=== PATIENT | female | born 1995 | race Caucasian/White ===

== ENCOUNTER 2019-09-19 22:19 | Outpatient (RCR) | payer OTHER, BC, SELFPAY ==
[2019-09-19 23:03] VITALS: BP 105/66; PULSE 85
== END 2019-11-30 07:46 | disposition home or self-care (01) ==
LOC: ANHOBOP 22:19
PROVIDERS: Visit Provider Obstetrics & Gynecology
DX: O36.8130 Decreased fetal movements, third trimester, not applicable or unspecified (principal); Z3A.39 39 weeks gestation of pregnancy
CPT/HCPCS: 59025

== ENCOUNTER 2021-06-06 09:33 | Outpatient (CLI) | payer OTHER, SELFPAY ==
[2021-06-06 10:29] LABS: Basophils Absolute Auto 0.1 K/mm3 (0.0-0.1); Basophils Percent Auto 1.1 % (0.2-1.2); Eosinophils Percent Auto 0.4 % (0-4.4); Hematocrit 34.4 % (37.0-47.0); Immature Granulocyte Absolute 0.04 K/mm3 (0.00-0.031); Immature Granulocyte Percent A 0.4 % (0-0.5); Lymphocytes Absolute Auto 5.66 K/mm3 (0.9-3.2); Lymphocytes Percent Auto 57.3 % (18.3-44.2); Mean Corpuscular HGB Conc 34.9 g/dl (32-36); Mean Corpuscular Hemoglobin 29.9 pg (26-34); Mean Corpuscular Volume 85.8 fl (80-100); Mean Platelet Volume 9.4 fl (7.4-10.4); Monocytes Absolute Auto 0.5 K/mm3 (0.1-0.6); Monocytes Percent Auto 5.3 % (2.6-8.5); Neutrophils Absolute Auto 3.5 K/mm3 (1.3-6.7); Neutrophils Percent Auto 35.5 % (45.5-73.1); Platelet Count Result 211 k/mm3 (150-375); Red Blood Count 4.01 M/mm3 (4.2-5.4); Red Cell Distribution Width 12.5 % (11.5-14.5); White Blood Count 9.9 K/mm3 (4.5-10.0)
[2021-06-06 10:55] LABS: Influenza Control Positive
[2021-06-06 11:06] LABS: Monoscreen Negative (Negative); Negative Monotest Control Negative (Negative); Positive Monotest Control Positive (Positive)
[2021-06-06 11:36] LABS: Atypical Lymphocytes Present; Platelet Estimate Adequate (Adequate)
== END 2021-06-06 09:34 | disposition home or self-care (01) ==
PROVIDERS: Visit Provider Obstetrics & Gynecology
DX: R50.9 Fever, unspecified (principal)
CPT/HCPCS: 85025; 86308; 87804

== ENCOUNTER 2021-08-31 16:42 | Observation (INO) | payer OTHER, SELFPAY ==
--- NOTE | ~2021-08-31 | US_ITS ---
EXAMINATION: US OB limited EXAM DATE: 08/31/2021 18:12 INDICATION: Cervical length, MURTAZA, and check placenta. 2nd trimester. TECHNIQUE: Pelvic obstetrical transabdominal sonogram was performed by a technologist. There are mu ltiple grayscale and Doppler images available for interpretation. There are no earlier studies of th is gestation for comparison. FINDINGS: There is a single fetus identified in vertex presentation with a heart rate of 145 beats pe r minute. The placenta is located in the anterior position. There is no sonographic evidence of retr oplacental hemorrhage identified. The amniotic fluid index is 13.6 centimeters, which is normal. Plac ental margin to internal cervical os distance is 5.8 cm. Cervical canal length measured several time s 3.2-3.8 cm. The lower measurement appears to be an underestimation by a few millimeters, No cervica l funneling. IMPRESSION: 1. Single fetus in vertex presentation with heart rate 145 beats per minute. 2. Cervical canal length about 3.5 cm, no funneling. 3. Normal MURTAZA 13.6 cm. Reviewed, dictated and finalized at location A. [facility] [employer]
[2021-08-31 17:00] VITALS: TEMP 37.2
[2021-08-31 17:01] VITALS: BP 124/79; PULSE 95
[2021-08-31 17:06] VITALS: TEMP 37.2; BMI 25.4
--- NOTE | 2021-08-31 17:08 | OBADM ---
This patient, Vivian Shay, admitted to the OB room 115 at 1642 for observation for vaginal bleeding. Patient/family oriented to hospital policies and general routines including ID bracelet, bed and alarms, visiting hours, pain management, procedures, bathroom and other care routines, personal items, smoking policy, room service/diet, and visiting hours. Patient/Family are encouraged to report perceived risks to care and to ask questions if they do not understand what they are told or what they should do.
--- NOTE | 2021-08-31 18:45 | PC.NURSE ---
called Dr. Lyons- reviewed US report. no further bleeding noted. orders received to d/c home on pelvic rest, no heavy lifting, office visit early next week.
--- NOTE | 2021-09-01 07:50 | PM.OBTRLD ---
OB - Triage/Final Diagnosis Visit Information Comments/Additional reasons for admission: I have assessed the risk for this patient, Vivian Shay, and determined that she would benefit from observation care. Evaluation Vital signs: Vital Signs - 24 hr 08/31/21 17:00 08/31/21 17:01 08/31/21 17:06 Temperature 37.2 C 37.2 C Pulse Rate 95 Blood Pressure 124/79 Final Diagnosis (1) Vaginal bleeding affecting early : Code(s): O20.9 - Hemorrhage in early , unspecified Status: Acute
== END 2021-08-31 19:07 | disposition home or self-care (01) ==
PROVIDERS: Admitting Provider Obstetrics & Gynecology; Visit Provider Obstetrics & Gynecology
DX: O20.9 Hemorrhage in early pregnancy, unspecified (principal); Z3A.22 22 weeks gestation of pregnancy
CPT/HCPCS: 76815; G0378; G0379

== ENCOUNTER 2021-11-10 12:12 | Outpatient (RCR) | payer OTHER, SELFPAY ==
--- NOTE | ~2021-11-10 | US_ITS ---
EXAMINATION: US OB follow up w BPP EXAM DATE: 11/10/2021 14:03 INDICATION: hx of covid two weeks ago, growth and BPP, ?SGA Hx Of COVID 3rd trimester. TECHNIQUE: Pelvic obstetrical transabdominal sonogram was performed by a technologist. There are mu ltiple grayscale and Doppler images available for interpretation. Comparison is made to prior examina tion from 08/31/2021. FINDINGS: There is a single fetus identified in vertex presentation with a heart rate of 165 beats pe r minute. The placenta is located in the anterior fundal position. There is no sonographic evidence of retroplacental hemorrhage identified. The amniotic fluid index is 12.5 centimeters, which is norm al. BIOMETRIC DATA: Biparietal diameter (BPD): 8.2 cm --------------> 32 weeks 6 days. Head circumference (HC): 29.5 cm ---------------> 32 weeks 4 days. Abdominal circumference (AC): 27.2 cm ---------> 31 weeks 2 days. Femur length (FL): 6.2 cm ------------------------> 32 weeks 1 day. These measurements are concordant. HC/AC ratio is 1.08 (The 5th -- 95th percentile range is 0.96-1.13. Estimated weight is 1837 g +/- 276 g. This is the 12th percentile when the currently reported clinical gestation age 33 weeks 0 days, clinical estimated date of delivery (JALYN-OPE) 12/29 is used. F etal estimated gestational age based on measurements from this exam is 32 weeks 2 days, with an estim ated date of delivery (JALYN-AUA) 01/03. BIOPHYSICAL PROFILE (performed by the technologist) breathing (30 sec sustained breathing in 30 minutes): 2 out of 2 movement (3 gross body movements in 30 minutes): 2 out of 2 tone (one episode of nzzvbet-uxfmfdmiu-qrqnivd limb movement): 2 out of 2 Amniotic fluid pocket (2 cm): 2 out of 2 Total score: 8 out of 8 IMPRESSION: 1. Single fetus with heart rate of 165 bpm. 2. Normal biophysical profile score of 8 out of 8. 3. Estimated weight of 1837 grams, 276 percentile using the currently reported clinical gestat ion age of 33 weeks 0 days, JALYN(OPE) 12/29. 4. Normal MURTAZA 12.5 cm. Reviewed, dictated and finalized at location B. LOADER IMPRESSION: 1. Single fetus with heart rate of 165 bpm. 2. Normal biophysical profile score of 8 out of 8. 3. Estimated weight of 1837 grams, 276 percentile using the currently re ported clinical gestation age of 33 weeks 0 days, JLAYN(OPE) 12/29. 4. Normal MURTAZA 12.5 cm.
[2021-11-10 13:27] VITALS: BP 103/63; PULSE 106
--- NOTE | 2021-11-10 14:16 | PC.NURSE ---
US results called to Dr Lyons, No further orders.
== END 2022-02-08 23:59 | disposition home or self-care (01) ==
LOC: ANHOBOP 12:12
PROVIDERS: Visit Provider Obstetrics & Gynecology
DX: O36.5930 Maternal care for other known or suspected poor fetal growth, third trimester, not applicable or unspecified (principal); Z3A.33 33 weeks gestation of pregnancy
CPT/HCPCS: 59025; 76816; 76819

== ENCOUNTER 2021-12-18 11:53 | Outpatient (CLI) | payer OTHER, SELFPAY ==
[2021-12-18 12:12] LABS: Basophils Percent Auto 0.2 % (0.2-1.2); Eosinophils Absolute Auto 0.1 K/mm3 (0-0.3); Eosinophils Percent Auto 0.7 % (0-4.4); Hematocrit 37.6 % (37.0-47.0); Immature Granulocyte Absolute 0.06 K/mm3 (0.00-0.031); Immature Granulocyte Percent A 0.7 % (0-0.5); Lymphocytes Percent Auto 24.6 % (18.3-44.2); Mean Corpuscular HGB Conc 34.6 g/dl (32-36); Mean Corpuscular Volume 89.7 fl (80-100); Mean Platelet Volume 9.8 fl (7.4-10.4); Monocytes Absolute Auto 0.5 K/mm3 (0.1-0.6); Monocytes Percent Auto 5.8 % (2.6-8.5); Neutrophils Absolute Auto 6.1 K/mm3 (1.3-6.7); Platelet Count Result 226 k/mm3 (150-375); Red Blood Count 4.19 M/mm3 (4.2-5.4); Red Cell Distribution Width 13.1 % (11.5-14.5)
[2021-12-19 09:21] LABS: Rapid Plasma Reagin Non-Reactive (NonReactive)
== END 2021-12-18 11:54 | disposition home or self-care (01) ==
PROVIDERS: Visit Provider Obstetrics & Gynecology
DX: Z01.818 Encounter for other preprocedural examination (principal)
CPT/HCPCS: 36415; 85025; 86592; 86900; 86901

== ENCOUNTER 2021-12-19 05:24 | Inpatient (IN) | payer OTHER, SELFPAY ==
[2021-12-19] VITALS (54 sets, daily range): BP systolic 90–133; BP diastolic 50–83; PULSE 55–106; RESP 12–16; TEMP 36.2–36.7; O2SAT 98–100; BMI 27.1
--- OUTSIDE RECORDS SUMMARY | 2021-12-19 05:31 | XMS_ITS ---
:1995 Author Care Team Providers Name Role Phone [facility] Primary Care Provider Unavailable Allergies Code Code System Name Reaction Severity Status Onset NKDA ? Medications Name Status Start Date Stop Date ? ? amoxicillin 875 mg tablet Completed ? 2020 TAKE 1 TABLET BY MOUTH EVERY 12 HOURS FOR 10 DAYS Flucelvax Quad 0325-3328 (PF) 60 mcg (15 mcg x 4)/0.5 mL IM syri nge Completed ? 08/08/2021 TO BE ADMINISTERED BY PHARMACIST FOR IMMUNIZATION Fluzone Quad 2482-4705 (PF) 60 mcg (15 mcg x 4)/0.5 mL IM syring e Completed ? 08/08/2021 TO BE ADMINISTERED BY PHARMACIST FOR IMMUNIZATION magnesium oxide 400 mg (241.3 mg magnesium) tablet Completed ? 09/05/2021 Take 1 tablet every day by oral route. metoclopramide 10 mg tablet Active ? Not available Nexplanon 68 mg subdermal implant Completed 11/04/2019 01/19/2021 Inject 1 implant by subcutaneous route. ondansetron 4 mg disintegrating tablet Completed ? 08/08/[address]21 PLACE 1 TABLET EVERY 6 8 HOURS BY TRANSLINGUAL ROUTE NEEDED. Pepcid 20 mg tablet Active ? Not availabl e Take 1 tablet twice a day by oral route. Pepcid AC 10 mg tablet Completed ? Take 1 tablet twice a day by oral route as needed. 28 mg iron-800 mcg tablet Completed 04/13/2019 12/15/2020 Take 1 tablet every day by oral route. promethazine 25 mg tablet Completed ? 2018 Take 1 tablet every 4-6 hours by oral route. sertraline 100 mg tablet Completed ? 021 TAKE 1 TABLET BY MOUTH EVERY DAY Sleep Aid (doxylamine) 25 mg tablet
--- OUTSIDE RECORDS SUMMARY | 2021-12-19 05:31 | XMS_ITS ---
:1995 Author Care Team Providers Name Role Phone Primary Care Provider Unavailable Allergies Code Code System Name Reaction Severity Status Onset NKDA ? Medications Name Status Start Date Stop Date ? ? Flucelvax Quad 8976-3226 (PF) 60 mcg (15 mcg x 4)/0.5 mL IM syri nge Active ? Not available TO BE ADMINISTERED BY PHARMACIST FOR IMMUNIZATION Fluzone Quad (PF) 60 mcg (15 mcg x 4)/0.5 mL IM syring e Active ? Not available TO BE ADMINISTERED BY PHARMACIST FOR IMMUNIZATION metoclopramide 10 mg tablet Completed ? 03/22 Take 1 tablet 4 times a day by oral route. As needed for nausea and vomiting Nexplanon 68 mg subdermal implant Active ? Not available Inject 1 implant by subcutaneous route. 28 mg iron-800 mcg tablet Completed 04/13/2019 12/15/2020 Take 1 tablet every day by oral route. promethazine 25 mg tablet Completed ? 2018 Take 1 tablet every 4-6 hours by oral route. pyridoxine (vitamin B6) 25 mg tablet Completed ? 04/13/2019 Take 1 tablet 4 times a day by oral route. sertraline 100 mg tablet Active ? Not joni ilable TAKE 1 TABLET BY MOUTH EVERY DAY Unisom (doxylamine) 25 mg tablet Completed 04/13/2019 05/06/2019 Take 12.5 mg 3 times a day by oral route. Zofran 4 mg tablet Completed ? 10/23/2019 Take 2 tablets every 8 hours by oral route. Zoloft 50 mg tablet Completed ? 06/21/2020 Take 1 tablet every day by oral route. Problems
--- OUTSIDE RECORDS SUMMARY | 2021-12-19 05:31 | XMS_ITS | Encounter Summary ---
:1995 Author Reason for Visit return OB visit ob-nm Assessment and Plan 1. Insufficient weight gain of p regnancy ? US, obstetric, 3rd trimest er 2. Nausea ? Reglan 10 mg tablet ? Pepcid 20 mg tablet Discussion Note: None recorded.Patient educational handouts: No information available. Plan of Care Reminders Provider Appointments None ? ? recorded. Lab None ? ? recorded. Referral None ? ? recorded. Procedures None ? ? recorded. Surgeries None ? ? recorded. Imaging US, [facility] Tr[facility] (Imaging) Medications Name Start Date ? ? metoclopramide 10 mg tablet ? Take 1 tablet 3 times a day by oral route. Pepcid 20 mg tablet ? Take 1 tablet twice a day by oral route. Notes: PNV Medications Administered None recorded. Vitals Weight Blood Pressure 149 lbs 114/62 mm[Hg] Results Lab Results None recorded. Allergies Code Code System Name Reaction Severity Onset NKDA ? ? ? Problems Name Status Onset Date
--- OUTSIDE RECORDS SUMMARY | 2021-12-19 05:31 | XMS_ITS | Encounter Summary ---
:1995 Author Reason for Visit return OB visit Assessment and Plan 1. Routine care ? [facility] ? HIV (1+2) Ab screen, serum ? CBC w/ auto diff Discussion Note: None recorded.Patient educational handouts: No information available. Plan of Care Reminders Provider Appointments None ? ? recorded. Lab Glucose [facility] Tolerance Test, 09/26/2021 (Lab) Gestational, 1-Hour ? HIV (1+2) Ab [facility] Screen, Serum 09/26/2021 (Lab) ? CBC W/ Auto [facility] Diff 09/26/2021 (Lab) Referral None ? ? recorded. Procedures None ? ? recorded. Surgeries None ? ? recorded. Imaging None ? ? recorded. Medications Name Start Date ? ? metoclopramide 10 mg tablet ? Take 1 tablet 3 times a day by oral route. Pepcid 20 mg tablet ? Take 1 tablet twice a day by oral route. Notes: PNV Medications Administered None recorded. Vitals Weight Blood Pressure 148 lbs 117/68 mm[Hg] Results
[2021-12-19] MEDS: LACTATED RINGERS 1,000 ML 125 ML IV CONT (06:06)
--- NOTE | 2021-12-19 06:19 | LDADM ---
This patient, Vivian Shay, was admitted to Labor/Delivery/Recovery 120 on 12/19/21 at 05:24. Plans for section, pain management and were discussed with patient. Patient/family oriented to hospital policies and general routines including ID bracelet, bed and alarms, visiting hours, pain management, procedures, bathroom and other care routines, personal items, smoking policy, room service/diet and guest tray routines, security routines, and visiting hours. Patient/Family are encouraged to report perceived risks to care and to ask questions if they do not understand what they are told or what they should do. See OBIX for further documentation.
--- NOTE | 2021-12-19 06:50 | WPDANESEPPF ---
Anes - Initial Pre Proc Eval Procedure: Operation Date: 12/19/21 07:30 Proposed Procedures p Repeat Section - Allison Lyons MD Date/Time: 12/19/21 06:50 Surgeon: Allison Lyons MD Pre Op Diagnosis: C/S Patient Data Age: 26 Gender: F Height: 1.6 m Weight: 69.5 kg Last Vital Signs Temp 36.6 C 12/19/21 06:30 Pulse 82 12/19/21 06:13 BP 108/66 12/19/21 06:13 Allergies Allergy/AdvReac Type Severity Reaction Status Date / Time No Known Allergies Allergy Verified 12/15/21 10:06 Home Medications Medication Instructions Recorded Confirmed Type PNV cmb#95-ferrous fumarate-FA 1 tablet PO DAILY 08/29/19 12/19/21 History [] sertraline 50 mg tablet 50 mg PO DAILY #90 tablet 12/15/21 12/19/21 Rx Patient hx anesthesia problems: post op nausea/vomiting Family hx anesthesia problems: none Results Review: All pre-operative results and documents have been reviewed as part of the pre-operative evaluation. [facility], [facility] Past Medical History Medical History Post depression (~09/2020) Surgical History Surgical History Delivery by section (~09/23/20) failure to arrest History of orthopedic surgery right knee Hx of appendectomy Family History Family History Father High cholesterol Sibling Pancreatitis Grandparent Diabetes mellitus Other Cerebrovascular accident Social History Social History Smoking status: Never smoker Second hand tobacco smoke exposure: No Substance use: never Spiritual care concerns: No Anes - Eval Final PreProcedure Day of Procedure 12/19/21 06:50 Patient weight: overweight Heart: regular rate and rhythm Lungs: clear to auscultation Airway: Mallampati scale class II Neurological: alert and oriented Last oral intake: >/= 8 hours ASA classification: II Emergent: no Anesthetic plan: proceed Anesthesia type and monitoring: regional spinal and standard monitoring Results Review: All pre-operative results and documents have been reviewed as part of the pre-operative evaluation. Informed Consent: The patient's anesthetic plan and its attendant risks and benefits were discussed with the patient/family/POA. Questions were solicited and answers provided to the satisfaction of the patient/family/POA.
--- NOTE | 2021-12-19 06:52 | P.HP_ITS ---
H&P: HPI History of Present Illness Date/Time: 12/19/21 06:50 Vivian is a 26yo @ 39.0wks (JALYN 12/26/21) who presents for scheduled repeat section. She has had regular care. She reports good movement. Occasional contractions. No VB or LOF. Her has been complicated by: - Previous C/S x1, for repeat - Anxiety on zoloft - Inadequate weight gain of 14lbs; normal growth - COVID infection in 3rd trimester Chief Complaint: scheduled repeat Review of Systems Review of Systems: All systems reviewed & are unremarkable except as noted in HPI and below (HPI) [facility] Past Medical History Medical History Post depression (~09/2020) Surgical History Surgical History Delivery by section (~09/23/20) failure to arrest History of orthopedic surgery right knee Hx of appendectomy Family History Family History Father High cholesterol Sibling Pancreatitis Grandparent Diabetes mellitus Other Cerebrovascular accident Social History Social History Smoking status: Never smoker Second hand tobacco smoke exposure: No Substance use: never Spiritual care concerns: No Meds Home Medications and Allergies Home Medications Medication Instructions Recorded Confirmed Type PNV cmb#95-ferrous fumarate-FA 1 tablet PO DAILY 08/29/19 12/19/21 History [] sertraline 50 mg tablet 50 mg PO DAILY #90 tablet 12/15/21 12/19/21 Rx Allergies Allergy/AdvReac Type Severity Reaction Status Date / Time No Known Allergies Allergy Verified 12/15/21 10:06 Exam Const: General: cooperative, healthy appearing, comfortable and no acute distress Resp: Effort & Inspection: normal respiratory effort Cardio: Rate: regular rate GI: GI Palp: No abdominal tenderness and Yes Soft to palpation : Other: FHT's: 130's/ mod bere/ + accels/ no decels - cat 1 TOCO: irritability Membranes: intact; GBS negative Presentation: cephalic Skin: General skin exam: normal color Neuro: General: patient oriented x3 Extrem: General: normal to inspection Psych: Appearance: grossly normal Affect: normal affect Attitude: cooperative Assessment and Plan Assessment and plan (1) Previous section: Code(s): Z98.891 - History of uterine scar from previous surgery Status: Acute Additional Plan - Prior c/s x1 for repeat - All risks and benefits explained in detail
--- NOTE | 2021-12-19 06:52 | WPDHPUPDATE1 ---
History and Physical Update Update Date/Time: 12/19/21 06:52 History and Physical has been reviewed, including an updated exam of the patient. There are NO changes in the patient's condition. Risks, benefits, and alternatives have been discussed and questions answered. Patient agrees to proceed with procedure.
[2021-12-19] MEDS: SCOPOLAMINE 1.5 MG PATCH TRANSDERM (06:57)
[2021-12-19] MEDS: LACTATED RINGERS 250 ML 999 ML IVPB (07:00)
[2021-12-19] MEDS: ceFAZolin 2 GM/D5W 50 ML 2 GM/50 ML BAG IVPB (07:30)
--- NOTE | 2021-12-19 08:21 | P.PCNOB_ITS ---
OB - Delivery Note Procedure Delivery date: 12/19/21 Procedure: Procedures Operation Date: 12/19/21 07:30 <No data on this case meets the specified criteria> Events: Previous Delivery Route of delivery: Quantitative Blood Loss (ml): 420 Anesthesia type: Spinal Disposition: floor Baby Date of : 12/19/21 Time of : 07:41 Weeks of gestation at delivery: 39 Infant gender: Female Weight (pounds): 5 Weight (ounces): 15 presentation: vertex position: Left Occiput Transverse Placenta delivery description: Expressed Cord Vessel Description: 3 Vessels, Nuchal Cord, Loose, Reduced and Del ayed Cord Clamping score one minute: 7 score five minutes: 8 Narrative: She was counseled on all risks and benefits in detail. She was taken to the operating room where spinal was placed. She was then prepped and draped in the normal sterile fashion. She received 2g Ancef and a time out was performed. A Pfannenstiel incision was made in the skin and carried down to the underlying fascia. The fascia was nicked on either side of the midline and the fascial incision was extended laterally and superiorly. The fascia was then elevated and the underlying rectus muscles were dissected off the fascia, superiorly and inferiorly. The rectus muscles were then in the midline and the peritoneum was entered bluntly. Once adequate exposure was obtained, a Mobius self retractor was placed within the abdomen. A bladder flap was created. A low transverse incision was made on the lower uterine segment and thick meconium was noted. The occiput was brought to the hysterotomy and the head was easily delivered. Nuchal cord was noted and reduced. The shoulder and body then followed without complications. The infant had spontaneous cry. The cord was clamped and cut and the was handed off to the awaiting pediatric nurse. A segment of the cord was collected for cord gases. The remaining cord blood was collected for typing. With pitocin infusing, the placenta delivered with gentle traction on the cord without complications. The uterus was then cleared out of all clots and debris using a clean, moist lap. The hysterotomy was then repaired in a running, interlocking fashion using 0 Vicryl. A second layer imbricating suture was then made using 0 Vicryl. The hysterotomy was found to be hemostatic and good uterine tone was noted. The bilateral adnexa were examined and found to be normal. The pelvis was cleared of all clots and fluid. The Mobius retractor was removed from the abdomen. The peritoneum, muscle, and fascia were examined and made hemostatic with bovie cautery. The fascia was then repaired using a 0 Vicryl suture in a running fashion. The subcutaneous tissue was then irrigated and made hemostatic with bovie cautery. The subcutaneous tissue was then reapproximated using 2-0 Vicryl. The skin was then closed using 4-0 Monocryl in a running subcuticular fashion. Sponge, lap, needle and instrument counts were correct at the end of the procedure x2. The patient tolerated the procedure well and was taken to recovery in a stable condition. [facility] Delivery Billing Delivery Delivery: Delivery Charge
--- NOTE | 2021-12-19 10:46 | PC.NURSE ---
0845 - Introductions were made and other led conversation with her experience with feeding baby so far. Resources used to facilitate learning were used from the visual handout/ tool. Mother demonstrated understanding of hand expression and is collecting colostrum for her infant that is in the nursery. Reported to primary RN.
[2021-12-19] MEDS: KETOROLAC 30 MG/ML VIAL (*BKC) IV PUSH (12:00)
--- NOTE | 2021-12-19 12:06 | PC.NURSE ---
Pt in to the nursery to see and breast feed infant from [id number].
--- NOTE | 2021-12-19 13:41 | PC.NURSE ---
1315 - Breast pump provided due to is in level 2 care in the first floor nursery. Reviewed information regarding pump care, hand washing, nipple care and pumping 8 times in 24 hours (1-2 at night) for 10-15 minutes. Discussed she may want to pump after feedings or between feedings. If after feeding, rest for 5-10 minutes. Get something to eat/drink, use the restroom, then pump. Collection and storage of breastmilk per mom and baby guide. Encouraged mom to place infant skin to skin, breast massage and use hand expression and/or a breast pump in a relaxing atmosphere. Reviewed recording pumping schedule on the feeding sheet or pumping log. Referred to the visual handout along with the mom and baby guide as a resource and when to call a provider. Reported to primary RN.
[2021-12-19] MEDS: HYDROcodone/acetaminophen (*CRX) 10-325 MG TABLET 1 TAB PO (14:21)
[2021-12-19] MEDS: LANOLIN (LANSINOH) 7.5 GM CREAM 1 APPLIC TOPICAL (17:28)
[2021-12-20] MEDS: KETOROLAC 30 MG/ML VIAL (*BKC) IV PUSH (01:58)
[2021-12-20 04:40] VITALS: BP 102/60; PULSE 78; RESP 16; TEMP 37; O2SAT 98
[2021-12-20 05:47] LABS: Basophils Percent Auto 0.4 % (0.2-1.2); Eosinophils Absolute Auto 0.1 K/mm3 (0-0.3); Eosinophils Percent Auto 0.9 % (0-4.4); Hematocrit 29.7 % (37.0-47.0); Hemoglobin 10.3 g/dL (12.0-15.0); Immature Granulocyte Absolute 0.04 K/mm3 (0.00-0.031); Immature Granulocyte Percent A 0.4 % (0-0.5); Lymphocytes Absolute Auto 1.81 K/mm3 (0.9-3.2); Lymphocytes Percent Auto 17.6 % (18.3-44.2); Mean Corpuscular HGB Conc 34.7 g/dl (32-36); Mean Corpuscular Hemoglobin 31.7 pg (26-34); Mean Corpuscular Volume 91.4 fl (80-100); Mean Platelet Volume 10.3 fl (7.4-10.4); Monocytes Absolute Auto 0.6 K/mm3 (0.1-0.6); Monocytes Percent Auto 5.8 % (2.6-8.5); Neutrophils Absolute Auto 7.7 K/mm3 (1.3-6.7); Neutrophils Percent Auto 74.9 % (45.5-73.1); Platelet Count Result 178 k/mm3 (150-375); Red Blood Count 3.25 M/mm3 (4.2-5.4); Red Cell Distribution Width 13.1 % (11.5-14.5); White Blood Count 10.3 K/mm3 (4.5-10.0)
[2021-12-20 07:00] VITALS: BP 100/62; PULSE 76; RESP 16; TEMP 37; O2SAT 97
[2021-12-20] MEDS: SERTRALINE HCL 50 MG TABLET PO (07:44)
[2021-12-20] MEDS: MULTIVIT/MIN/PREN/FOL AC/IRON TABLET 1 TAB PO (07:44)
[2021-12-20] MEDS: DOCUSATE SODIUM 100 MG CAPSULE PO ×2 (07:44→16:16)
[2021-12-20] MEDS: IBUPROFEN 600 MG TABLET PO ×2 (07:46→16:16)
[2021-12-20] MEDS: HYDROcodone/acetaminophen (*CRX) 5-325 MG TABLET 1 TAB PO ×2 (07:47→16:16)
--- NOTE | 2021-12-20 08:40 | WPDANLDNPN2 ---
Anes-Prog Note L&D-Neuraxial Date/Time: 12/20/21 08:40 Neuraxial medications: intrathecal PF morphine Opiod-related complaints: none Patient feedback: Patient satisfied with post-operative pain management.
--- NOTE | 2021-12-20 08:41 | WPDANLDPN2 ---
Anes-Prog Note L&D Date/Time: 12/20/21 08:41 Comfortable throughout: section Neuraxial method: spinal Epidural/Spinal procedure site: clean & non-tender Neuro status: Neuro function grossly intact. Cardiovascular status: normal Respiratory status: normal Airway patency: baseline Mental status: baseline Post-Op hydration status: normal Vital Signs: Last Vital Signs Temp 37.0 C 12/20/21 04:40 Pulse 78 12/20/21 04:40 Resp 16 12/20/21 04:40 BP 102/60 12/20/21 04:40 Pulse Ox 98 12/20/21 04:40 Pain score (VAS): 2 I/O: Intake & Output 12/19/21 12/20/21 12/20/21 23:59 07:59 15:59 Intake Total 500 800 Output Total 1400 2000 Balance -900 -1200 Post-procedural complaints: none Patient feedback: Patient satisfied with anesthetic care.
--- NOTE | 2021-12-20 12:45 | P.PNOB_ITS ---
OB - PN: Subj Subjective Date/time seen: 12/20/21 12:44 Narrative: POD#1 Vivian reports doing well today. Her bleeding is light. Her pain is controlled. She is tolerating regular diet, voiding, passing gas, and ambulating without issues. She denies any issues with her incision. She is breast feeding. She would like to go home tomorrow. OB - PN: Obj Data Labs CBC & Chem 7: 12/20/21 04:47 Labs: Laboratory Results - last 24 hr 12/20/21 04:47 WBC 10.3 H RBC 3.25 L Hgb 10.3 L Hct 29.7 L MCV 91.4 MCH 31.7 MCHC 34.7 RDW 13.1 Plt Count 178 MPV 10.3 Immature Gran % (Auto) 0.4 Neut % (Auto) 74.9 H Lymph % (Auto) 17.6 L [place] % (Auto) 5.8 Eos % (Auto) 0.9 Baso % (Auto) 0.4 Lymph # (Auto) 1.81 [place] # (Auto) 0.6 Eos # (Auto) 0.1 Baso # (Auto) 0.0 Abs Immat Gran (auto) 0.04 H Absolute Neuts (auto) 7.7 H Absolute Nucleated RBC 0.0 Nucleated RBC % 0.0 OB - PN A/P Assessment and Plan (1) S/P repeat low transverse : Code(s): Z98.891 - History of uterine scar from previous surgery Status: Acute Plan day: 1 Plan: routine care and discharge home (tomorrow) Comments: - f/u in 4wks; call office if any issues - Pelvic rest; take meds as prescribed - Incision care/no heavy lifting - ER return precautions: fever, n/v/abd pain, bleeding, HTN Time Spent With Patient Time: Total time spent is greater than 50% in coordination of care (as documented) at patient's floor/unit and/or counseling patient: Review of Systems Constitutional: Constitutional: Denies chills, Denies fever(s) and Denies headache(s) Eyes: Eyes: Denies change in vision ENT: Denies dizziness and Denies headache(s) Cardiovascular: Cardiovascular: Denies chest pain, Denies palpitations and Denies dyspnea Respiratory: Respiratory: Denies cough and Denies dyspnea Gastrointestinal: Gastrointestinal: Denies nausea and Denies vomiting Genitourinary: Comments: normal bleeding Neurologic: Denies dizziness and Denies headache(s) Endocrine: Endocrine: Denies palpitations Exam Const: General: cooperative, comfortable and no acute distress Orientation/consciousness: patient oriented x3 Resp: Effort & Inspection: normal respiratory effort Auscultation: clear to auscultation bilaterally Cardio: Rate: regular rate GI: Inspection: non-distended and incision (covered with clean dressing) GI Palp: Yes abdominal tenderness (appropriate) and Yes Soft to palpation Auscultation: normal bowel sounds : Other: fundus firm Skin: General skin exam: normal color Neuro: General: patient oriented x3 Extrem: General: normal to inspection Psych: Appearance: grossly normal Affect: normal affect Attitude: cooperative
--- NOTE | 2021-12-20 13:44 | PC.NURSE ---
On 12/20/21, the student, Olivia Gardiner, provided care and completed [facility] documentation on this patient. I have reviewed the student's documentation and agree with the findings.
--- NOTE | 2021-12-20 14:40 | PC.NURSE ---
Patient instructed on viewing the discharge video Mother & Baby Care, The First Two Weeks . Patient was given the opportunity and encouraged to ask questions. Patient verbalized understanding of information shared and has been given the mother/baby guide for home reference.
[2021-12-20 19:00] VITALS: BP 110/81; PULSE 71; RESP 16; TEMP 37
[2021-12-21] MEDS: IBUPROFEN 600 MG TABLET PO ×2 (00:12→09:48)
[2021-12-21] MEDS: HYDROcodone/acetaminophen (*CRX) 5-325 MG TABLET 1 TAB PO ×2 (00:13→09:49)
[2021-12-21 07:25] VITALS: BP 104/66; PULSE 72; RESP 18; TEMP 36.9; O2SAT 98
[2021-12-21 08:00] VITALS: PULSE 72; RESP 18; O2SAT 98
[2021-12-21] MEDS: MULTIVIT/MIN/PREN/FOL AC/IRON TABLET 1 TAB PO (09:49)
[2021-12-21] MEDS: DOCUSATE SODIUM 100 MG CAPSULE PO (09:49)
[2021-12-21] MEDS: SERTRALINE HCL 50 MG TABLET PO (09:50)
[2021-12-22 09:34] VITALS: BP 113/77; PULSE 84; RESP 20; TEMP 37; O2SAT 99
--- NOTE | 2021-12-25 10:29 | PM.OBDSVD ---
DS: Admitting Diagnosis Discharge Date 12/21/21 Admitting Diagnosis scheduled repeat section DS: Discharge Diagnosis Discharge Diagnosis (1) S/P repeat low transverse : Code(s): Z98.891 - History of uterine scar from previous surgery Status: Acute OB - DS: Summary OB Procedures : NST and Ultrasound OB Procedures Intrapartum: low cervical, transverse OB Procedures: : None Peripartum Data Delivery Method: Section Procedures: Procedures Operation Date: 12/19/21 07:30 Actual Procedure Side Surgeon p Repeat Section Not Applicable Allison Lyons MD complications: none 1: Gender: Female Disposition of : home Status at Discharge Functional status at discharge: independent ambulation Overall status at discharge: patient is back to baseline Time Spent with Patient Time attestation: Total time spent providing and/or coordinating discharge services: Time spent: Less than 30 minutes Exam Const: General: cooperative, comfortable and no acute distress Orientation/consciousness: patient oriented x3 Resp: Effort & Inspection: normal respiratory effort Auscultation: clear to auscultation bilaterally Cardio: Rate: regular rate GI: Inspection: non-distended and incision (covered with clean dressing) GI Palp: No abdominal tenderness and Yes Soft to palpation Auscultation: normal bowel sounds : Other: fundus firm Skin: General skin exam: normal color Neuro: General: patient oriented x3 Extrem: General: normal to inspection Psych: Appearance: grossly normal Affect: normal affect Attitude: cooperative DS: Data Data Completed and Pending Completed studies during hospitalization: Pending at discharge 12/19/21 07:42 Surgical [PTH] Routine Discharge Plan Discharge Attending physician on discharge: Allison Lyons Consulting providers: Huy Watkins Discharging Clinician: Allison Lyons Anticipated Discharge Date/Time: 12/21/21 08:00 Patient Disposition: Home, Self-Care Activity: may shower, may drive after 2 weeks and pelvic rest Diet: as tolerated and regular Discharge Instructions: Education: Mom and Baby Guide Given to: Mother Follow-Up: Call your delivering provider's office for an appointment to be seen in: 4 Weeks Mom and baby should come to the [facility] for the follow-up appointment. Appointment Date/Time: Wednesday, December 22, 2021 at 9:00 a.m. What to expect at your follow-up visit: Blood Pressure Check Physical Assessment Call [phone] if you are unable to keep your appointment time. BREAST CARE: * Wear a snug supportive bra. * For engorgement discomfort: Breast Feeding: * Apply warm moist washcloths * Express milk as needed to relieve engorgement * Wear loose clothing * For sore nipples: * Identify correct latch-on * Apply warm moist washcloths before and after nursing * Air dry nipples after nursing * May apply Lansinoh cream to nipples ABDOMINAL INCISION: (if applicable) * Allow incision to air dry * Do NOT use lotions for powders on your incision * When showering, allow soap and water to run over the incision, but do not wash incision EPISIOTOMY/PERINEAL CARE: * Until bleeding stops, use your hugo bottle after urinating * Change your pad frequently throughout the day * You may take sitz baths several times a day (fill your bathtub with warm water and soak for 20 minutes.) Do NOT bathe in the water * No tub baths until seen by your physician - You may shower ACTIVITY: * Rest as much as possible. * Do not exercise or lift anything heavier than your baby (such as laundry or other children.) * Avoid stairs or driving as much as possible. * Do not put anything into the vagina. No douching, tampons, or sexual activity
== END 2021-12-21 12:40 | disposition home or self-care (01) | DRG 788 ==
LOC: ANHLDR 05:43 → ANHOB2 11:52
PROVIDERS: Admitting Provider Obstetrics & Gynecology; Visit Provider Obstetrics & Gynecology
PROC: 10D00Z1 Extraction of Products of Conception, Low, Open Approach (ICD-10-PCS; CPT 59514; principal; 2021-12-19 07:30)
DX: O34.211 Maternal care for low transverse scar from previous cesarean delivery (principal); Z37.0 Single live birth; Z3A.39 39 weeks gestation of pregnancy; O99.344 Other mental disorders complicating childbirth; F41.9 Anxiety disorder, unspecified; Z86.16 Personal history of COVID-19; O69.81X0 Labor and delivery complicated by cord around neck, without compression, not applicable or unspecified; O77.0 Labor and delivery complicated by meconium in amniotic fluid
CPT/HCPCS: 36415; 85025; 88307; A9270; J0131; J0690; J1885; J2274; J2405; J7120

== ENCOUNTER 2025-02-01 10:19 | Outpatient (CLI) | payer OTHER, SELFPAY ==
--- NOTE | ~2025-02-01 | US_ITS ---
Pelvic ultrasound. Clinical History: First trimester , establish dates Technique: Realtime transabdominal and transvaginal scanning of the pelvis was performed. Color flow Doppler and Doppler spectral analysis were performed. Findings: The uterus is anteverted, and contains an intrauterine gestation. [place]-rump length of 3.4 cm corresponds to an estimated gestational age of 10 weeks 2 days. heart rate is 178 bpm. Neither ovary seen. No adnexal mass seen. There is no evidence of free fluid in the cul de sac. Impression: Live intrauterine gestation, with estimated gestational age of 10 weeks 2 days. heart rate is 1 78 bpm. Sonographic JALYN is 08/27/2025. Reviewed, dictated and finalized at location . Impression: Live intrauterine gestation, with estimated gestational age of 10 weeks 2 days. heart rate is 178 bpm. Sonographic JALYN is 08/27/2025.
== END 2025-02-01 10:20 | disposition home or self-care (01) ==
PROVIDERS: PCP Obstetrics & Gynecology; Visit Provider Obstetrics & Gynecology
DX: Z34.90 Encounter for supervision of normal pregnancy, unspecified, unspecified trimester (principal)
CPT/HCPCS: 76801; 76817

== ENCOUNTER 2025-08-05 22:38 | Observation (INO) | payer OTHER, SELFPAY ==
[2025-08-05] VITALS (18 sets, daily range): BP systolic 117–134; BP diastolic 79–90; PULSE 79–91; TEMP 36.1; O2SAT 97–99; BMI 32.5
--- OUTSIDE RECORDS SUMMARY | 2025-08-05 22:45 | XMS_ITS | Clinical Summary ---
Author Organization [facility] [address] [facility] Address [address] [place] [id number] Care Team Providers Care Bell Neck Hammerer Name Role Phone Juhi Pizano NP Primary Care Provider [phone] Allergies No known active allergies Medications 15-vsoa-npscov 6-dha 30 mg iron-1mg -200 mg capsule Take by mouth daily Active famotidine (PEPCID) 20 mg tablet every 12 hours Activ e metoclopramide (REGLAN) 10 mg tablet metoclopramide 10 mg tablet Active benzonatate (TESSALON) 200 mg capsuleIndicat ions:Bronchiti s Take 1 capsule (200 mg total) by mouth 3 (three) times a day as needed for cough 30 capsule 3 Active Additional Information Patient not taking.Reported on 12/08/2024 albuterol HFA (PROVENTIL HFA,VENTOLIN HFA,PROAIR HFA) 90 mcg/actuation inhalerIndicat ions:Bronchiti s Inhale 2 puffs every 6 (six) hours as needed for wheezing or shortness of breath 1 each 3 Active Additional Information Patient not taking.Reported on 12/08/2024 fexofenadine-p seudoephedrine (MARIANN-D 24) 180-240 mg per 24 hr tablet Take 1 tablet by mouth daily Active loratadine (CLARITIN) 10 mg tablet Take 1 tablet (10 mg total) by mouth daily Active fluticasone propionate (FLONASE) 50 mcg/actuation nasal spray Administer 1 spray into each nostril daily Active hydrocortisone 2.5 % ointmentIndica tions:Allergic contact dermatitis due to plants, except food Apply topically 2 (two) times a day 30 g 4 Active Additional Information Patient not taking.Reported on 12/08/2024 amoxicillin-cl avulanate (AUGMENTIN) 875-125 mg per tablet 5 Active escitalopram (LEXAPRO) 5 mg tablet 5 Active Active Problems Problem Noted Date Diagnosed Date 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 Immunizations Immunization Administration Dates Next Due Influenza, Quadrivalent, Cydney l Culture-based MDCK, Preservative Free, Antibiotic Free, Intramuscular 07/30/2018 Influenza, Quadrivalent, Split, Intramuscular Influenza, Quadrivalent, Spl it, Preservative Free, Intramuscular 07/30/2019 Tdap 11/17/2021,08/27/2019 Surgical History Surgery Date Site/Laterality Comments SECTION x 2 Social History Tobacco Use Types Packs/Day Years Used Date Smoking Tobacco: Never Passive Smoke Exposure: Never Smokeless Tobacco: Never Tobacco Cessation:Counseling Given: Not Answered PHQ-2 Answer Date Recorded PHQ-2 Total Score (If total score is 3 or more points, staff should administer the PHQ-9) 0 01/28/2023 Comments Unknown Sex and Gender Information Value Date Recorded Sex Assigned at Not on file Legal Sex Female 11:39 PM CDT Gender Identity Not on file Sexual Orientation Not on file Obstetrics History Last Filed Vital Signs Vital Sign Reading Time Taken Comments Blood Pressure 120/68 12/08/2024 11:58 AM OUTSIDE SALES ACCOUNT MANAGER Pulse 77 12/08/2024 11:58 AM OUTSIDE SALES ACCOUNT MANAGER Temperature 36.7 C (98.1 F) 12/08/2024 11:58 AM OUTSIDE SALES ACCOUNT MANAGER Respiratory Rate 16 12/08/2024 11:58 AM OUTSIDE SALES ACCOUNT MANAGER Oxygen Saturation 100% 12/08/2024 11:58 AM OUTSIDE SALES ACCOUNT MANAGER Inhaled Oxygen Concentration - - Weight 69.4 kg (153 lb) 12/08/2024 11:58 AM OUTSIDE SALES ACCOUNT MANAGER Height 160 cm (5' 3) 12/08/2024 11:58 AM OUTSIDE SALES ACCOUNT MANAGER Body Mass Index 27.1 12/08/2024 11:58 AM OUTSIDE SALES ACCOUNT MANAGER Plan of Treatment Health Maintenance Due Date Last Done Comments Cervical Cancer Screening 1995 Hepatitis C Screening 1995 Varicella Vaccines (1 of 2 - 13+ 2-dose series) 2008 Hepatitis B Screening 2013 Regular Well Visit/Exam 18-64 2013 HPV Vaccines (1 - 3-dose SCD M series) 2022 Depression Screening 01/29/2024 01/28/2023 Covid-19 Vaccine (3 - 2024-2 6 season) 2025 08/01/2021, 07/04/2021 Influenza Vaccine (#1) 2025 , 07/30/2019, 07/30/2018 DTaP/Tdap/Td Vaccine (3 - Td or Tdap) 11/17/2031 11/17/2021, 08/27/2019 Pneumococcal vaccine <65 Aged Out No longer eligible based on patient's age to complete this topic Insurance [facility] CHOICE PL[facility] Care Teams [place] Hammerer Relationship Specialty Start Date End Date Juhi Pizano NP [address] [place] [address] PCP - General Family Medicine 01/28/23
--- NOTE | 2025-08-05 23:04 | OBADM ---
This patient, Vivian Shay, admitted to the OB room OB Post 117 for observation at 2238. Patient/family oriented to hospital policies and general routines including ID bracelet, bed and alarms, visiting hours, pain management, procedures, bathroom and other care routines, personal items, smoking policy, room service/diet, and visiting hours. Patient/Family are encouraged to report perceived risks to care and to ask questions if they do not understand what they are told or what they should do.
[2025-08-05 23:26] LABS: Add Urine Microscopic? YES; Appearance Urine Cloudy (Clear); Glucose Urine UA Negative (Negative); Leukocyte Esterase Ur 1+ LEU/UL (Negative); Need Manual Microscopic Reviewed; Nitrate Urine Negative (Negative); Non Pathogenic Casts 0-2; Specific Grav Ur 1.017 (1.001-1.035)
--- NOTE | 2025-08-23 17:18 | P.PNOB_ITS ---
OB - Triage/Final Diagnosis Visit Information Comments/Additional reasons for admission: I have assessed the risk for this patient, Vivian Shay, and determined that she would benefit from observation care. Evaluation Laboratory results: Laboratory Tests 08/05/25 23:01 Urine Color Yellow Urine Appearance Cloudy H Urine pH 6.5 Ur Specific [place] 1.017 Urine Protein Negative Urine Glucose (UA) Negative Urine Ketones Negative Ur Blood (Man) Negative Urine Nitrate Negative Urine Bilirubin Negative Urine Urobilinogen 0.2 Add Ur Microanalysis Reviewed Leukocyte Esterase Rfl 1+ H Urine RBC 0-2 Urine WBC 0-5 Ur Squamous Epith Cells Few Urine Bacteria None seen Urine Casts 0-2 Urine Mucus Present Final Diagnosis (1) Nausea and vomiting during : Code(s): O21.9 - Vomiting of , unspecified Status: Acute
== END 2025-08-05 23:57 | disposition home or self-care (01) ==
PROVIDERS: Admitting Provider Obstetrics & Gynecology; PCP Nurse Practitioner Family; Visit Provider Obstetrics & Gynecology
DX: O21.2 Late vomiting of pregnancy (principal); Z3A.36 36 weeks gestation of pregnancy
CPT/HCPCS: 59025; 81001; 87086; G0378; G0379

== ENCOUNTER 2025-08-21 07:18 | Outpatient (CLI) | payer OTHER, SELFPAY ==
--- OUTSIDE RECORDS SUMMARY | 2025-08-21 07:23 | XMS_ITS | Clinical Summary ---
Author Organization [facility] Care Team Providers Care Hog Grader Name Role Phone Unavailable Primary Care Provider Unavailabl e Social History Tobacco Use Types Packs/Day Years Used Date Smoking Tobacco: Never Assessed Comments Unknown Sex and Gender Information Value Date Recorded Sex Assigned at Not on file Legal Sex Female 9:35 AM CDT Gender Identity Not on file Sexual Orientation Not on file Plan of Treatment Health Maintenance Due Date Last Done Comments Hepatitis C Virus (HCV) Screening 1995 Hepatitis B Immunization (1 of 3 - 19+ 3-dose series) 2014 Pap Smear 2016 Human Papillomavirus (HPV) Immunization (1 - 3-dose SCDM series) 2022 Cervical Cancer Screening (CCS) 2025 HPV/Cotest 2025 Influenza Immunization (#1) 2025 SARS-COV-2 Immunization ( season) 2025 Respiratory Syncytial Virus (RSV) Immunization (Adult) (1 - 1-dose 75+ series) 2070 DTaP/Tdap/Td Immunization Discontinued 08/27/2019 TdaP Immunization Completed 08/27/2019 Meningococcal Immunization (ACWY) Aged Out No longer eligible based on patient's age to complete this topic Pneumococcal Immunization Combined Aged Out No longer eligible based on patient's age to complete this topic Rotavirus Immunization Aged Out No lo nger eligible based on patient's age to complete this topic
[2025-08-21 08:05] LABS: Hematocrit 39.3 % (37.0-47.0); Hemoglobin 13.5 g/dL (12.0-15.0); Immature Granulocyte Percent A 0.7 % (0-0.5); Lymphocytes Absolute Auto 2.22 K/mm3 (0.9-3.2); Mean Corpuscular HGB Conc 34.4 g/dl (32-36); Mean Corpuscular Hemoglobin 30.0 pg (26-34); Mean Corpuscular Volume 87.3 fl (80-100); Nucleated Red Blood Cells Absolute Auto 0.000 K/mm3 (0.0-0.012); Nucleated Red Blood Cells Perc 0.0 % (0.0-0.2); Platelet Count Result 225 k/mm3 (150-375); Red Blood Count 4.50 M/mm3 (4.2-5.4); White Blood Count 8.8 K/mm3 (4.5-10.0)
[2025-08-21 09:28] LABS: Syphilis IgG/IgM Antibody Non-Reactive (Nonreactive)
== END 2025-08-21 07:19 | disposition home or self-care (01) ==
LOC: ANHLAB 07:21
PROVIDERS: PCP Student in an Organized Health Care Education/Training Program; Visit Provider Obstetrics & Gynecology
DX: Z01.818 Encounter for other preprocedural examination (principal)
CPT/HCPCS: 36415; 85025; 86593; 86850; 86900; 86901

== ENCOUNTER 2025-08-23 09:49 | Inpatient (IN) | payer OTHER, SELFPAY ==
[2025-08-23] VITALS (52 sets, daily range): BP systolic 113–132; BP diastolic 62–87; PULSE 55–98; RESP 16; TEMP 36.1–36.8; O2SAT 96–100; BMI 32.5
--- OUTSIDE RECORDS SUMMARY | 2025-08-23 01:00 | XMS_ITS | Clinical Summary ---
Author Organization [facility] Care Team Providers Care Rn Oncology Name Role Phone Unavailable Primary Care Provider [...]
[2025-08-23] MEDS: LACTATED RINGERS 1,000 ML 125 ML IV CONT ×2 (10:40→11:53)
[2025-08-23] MEDS: ACETAMINOPHEN 500 MG TABLET 1000 MG PO ×3 (10:41→21:42)
[2025-08-23] MEDS: SCOPOLAMINE 1 MG PATCH 1 PATCH TRANSDERM (10:48)
--- NOTE | 2025-08-23 11:03 | LDADM ---
This patient, Vivian Shay, was admitted to Labor/Delivery/Recovery 120 on 08/23/25 at 09:49. Plans for pain management and were discussed with patient. Patient/family oriented to hospital policies and general routines including ID bracelet, bed and alarms, visiting hours, pain management, procedures, bathroom and other care routines, personal items, smoking policy, room service/diet and guest tray routines, infant security routines, and visiting hours. Patient/Family are encouraged to report perceived risks to care and to ask questions if they do not understand what they are told or what they should do. See OBIX for further documentation.
[2025-08-23 11:20] LABS: Syphilis IgG/IgM Antibody Non-Reactive (Nonreactive)
--- NOTE | 2025-08-23 11:41 | PM.IMHP ---
H&P: HPI History of Present Illness Date/Time: 08/23/25 11:41 Chief Complaint: repeat Narrative: Vivian is a 30yo @ 39.2wks who presents for scheduled repeat section. She has had regular care. She reports irregular contractions. No vaginal bleeding or leakage of fluid. She reports good movement. Her is complicated by: - previous section x2; for repeat - Hyperemesis - Posterior low lying placenta; RESOLVED - GBS positive Review of Systems Constitutional: Constitutional: Denies chills, Denies fever(s) and Denies headache(s) Eyes: Eyes: Denies change in vision ENT: Denies headache(s) Cardiovascular: Cardiovascular: Denies chest pain and Denies dyspnea Respiratory: Respiratory: Denies dyspnea Genitourinary: Genitourinary: Denies abnormal vaginal bleeding and Denies vaginal discharge Neurologic: Denies headache(s) Psychiatric: Psychiatric: Denies anxiety and Denies depression PMFSH Past Medical History Medical History Suppression of menses Post depression (~09/2020) Surgical History Surgical History Delivery by section (~09/23/20) failure to arrest repeat History of orthopedic surgery right knee Hx of appendectomy Family History Family History Father High cholesterol Sibling Pancreatitis Grandparent Diabetes mellitus Other Cerebrovascular accident Social History Social History Smoking status: Never smoker Second hand tobacco smoke exposure: No Alcohol intake: never Substance use: never Substance use type: does not use Do You Feel Safe in your Home?: Yes Lack of Transportation: No Lack of Food: Never True Current Housing: I Have Housing Concerned About Future Housing: No Difficulty Paying Gas/Electric Bills: No Difficulty Paying for Meds: No Currently Unemployed: No Education: Master's Degree or Higher Difficulty w/ Childcare or Family Care: No Living arrangements: with family Occupation/Education: occupation Gender identity (if verbalized by the patient): Female Sexual Orientation (if Verbalized by the Patient): Straight or Heterosexual Spiritual care concerns: No Meds Home Medications and Allergies Home Medications ?Medication ?Instructions ?Recorded ?Confirmed ?Type docosahexaenoic acid 200 mg 200 mg PO DAILY 01/26/25 08/17/25 History capsule ( DHA) doxylamine succinate 25 mg tablet 25 mg PO QHS PRN sleep 01/26/25 08/17/25 History (Unisom (doxylamine)) famotidine 20 mg tablet (Pepcid) 20 mg PO DAILY 05/17/25 08/17/25 History ferrous sulfate 325 mg (65 mg 325 mg PO DAILY 05/17/25 08/17/25 History iron) tablet (Feosol) escitalopram oxalate 5 mg tablet See Rx Instructions .Route 06/10/25 08/17/25 Rx .COMPLEX #90 tabs RSV vac, preF A and preF B(PF) 120 0.5 ml IM ONCE #1 ea 07/12/25 08/17/25 Rx mcg/0.5 mL IM solution (Abrysvo (PF)) Allergies Allergy/AdvReac Type Severity Reaction Status Date / Time No Known Allergies Allergy Verified 08/23/25 11:07 Exam Const: General: cooperative, healthy appearing, comfortable and no acute distress Orientation/consciousness: patient oriented x3 Resp: Effort & Inspection: normal respiratory effort Cardio: Rate: regular rate GI: GI Palp: No abdominal tenderness : Other: FHT's: 150's/ mod bere/ + accels/ no decels - cat 1 TOCO: irregular ctxs Membranes: intact Presentation: cephalic Skin: General skin exam: normal color Neuro: General: patient oriented x3 Extrem: General: normal to inspection Psych: Appearance: grossly normal Affect: normal affect Attitude: cooperative Assessment and Plan Assessment and plan (1) Previous section: Code(s): Z98.891 - History of uterine scar from previous surgery Status: Acute Plan - Previous x2; for repeat. Declined salpingectomy - Risks and benefits discussed in detail - Ancef 2 g IV once - Anesthesia consult
--- NOTE | 2025-08-23 11:44 | WPDHPUPDATE1 ---
History and Physical Update Update Date/Time: 08/23/25 11:44 History and Physical has been reviewed, including an updated exam of the patient. There are NO changes in the patient's condition. Risks, benefits, and alternatives have been discussed and questions answered. Patient agrees to proceed with procedure.
[2025-08-23] MEDS: FAMOTIDINE 20 MG/2 ML VIAL IV PUSH (11:53)
[2025-08-23] MEDS: ONDANSETRON INJ 4 MG/2 ML VIAL IV PUSH (11:53)
--- NOTE | 2025-08-23 13:07 | W.PM.OBCSD ---
OB - Delivery Note Procedure Delivery date: 08/23/25 Pre-op diagnosis: Positive Group B Strep (GBS) and Previous Delivery Post-op Diagnosis: Same Induction method: None Delivery monitor: External FHT Prior to decision for section, ACOG/SMFM labor guidelines were considered and discussed with the patient and staff. Decision made to proceed with the section.: Yes Procedure Performed: Repeat Secondary branch: low cervical, transverse Surgeon: Allison Lyons MD Anesthesia type: Spinal Description of Procedure/Findings: Vivian was counseled on all risks and benefits in detail. She was taken to the operating room where spinal epidural was placed. She was then prepped and draped in the normal sterile fashion. She received 2g Ancef and a time out was performed. A Pfannenstiel incision was made in the skin and carried down to the underlying fascia. The fascia was nicked on either side of the midline and the fascial incision was extended laterally and superiorly using curved Barros scissors. The fascia was then elevated using Jamey clamps and the underlying rectus muscles were dissected off the fascia, superiorly and inferiorly. The rectus muscles were then in the midline and the peritoneum was entered sharply. Once adequate exposure was obtained, a Mobius self retractor was placed within the abdomen. A bladder flap was created. A low transverse incision was made on the lower uterine segment and clear fluid was noted. The occiput was easily brought to the hysterotomy and the head was easily delivered. Nuchal cord x2 was noted and reduced. The shoulders and body then followed without complications. The had spontaneous cry and the mouth and nose were bulb suctioned. Delayed cord clamping was performed. The cord was then clamped and cut and the was handed off to the awaiting pediatric nurse. A segment of the cord was collected for cord gases. The remaining cord blood was collected for typing. With pitocin infusing, the placenta delivered with gentle traction on the cord without complications. The uterus was then cleared out of all clots and debris using a clean, moist lap. The hysterotomy was then repaired in a running, interlockin fashion using 0 Vicryl. A second layer imbricating suture was then made using 0 Vicryl. The hysterotomy was found to be hemostatic and good uterine tone was noted. The bilateral adnexa were examined and found to be normal. The pelvis was cleared of all clots and fluid. The Mobius retractor was removed from the abdomen. The peritoneum, muscle, and fascia were examined and made hemostatic with bovie cautery. The fascia was then repaired using a 0 Vicryl suture in a running fashion. The subcutaneous tissue was then irrigated and made hemostatic with bovie cautery. The skin was then closed using 4-0 Monocryl in a running subcuticular fashion. A mepilex dressing was placed over the incision. Sponge, lap, needle and instrument counts were correct at the end of the procedure x2. The patient tolerated the procedure well and was taken to recovery in a stable condition. Estimated Blood Loss: 150 Pathology: Yes Complications: No immediate complications Condition: Stable Baby Date of : 08/23/25 Time of : 12:32 Gestational Age by Date: 39 (2) gender: Female Weight (pounds): 7 Weight (ounces): 3 presentation: vertex position: Right Occiput Transverse Placenta delivery description: Expressed Cord Vessel Description: 3 Vessels, Nuchal Cord (x2), Reduced and Delayed Cord Clamping score one minute: 8 score five minutes: 9 Narrative: Female ; ROT. Clear fluid. Very minimal scar tissue. Normal bilateral fallopian tubes and ovaries. Good hemostasis at end of case.
[2025-08-23] MEDS: OXYTOCIN 30 UNITS/NS 500 ML 30 UNITS/500 ML BAG 125 UNITS IV CONT (14:24)
--- NOTE | 2025-08-23 15:45 | PC.NURSE ---
1520. Patient transferred to post room #291 via wheelchair, in crib at moms side. Support person present. Oriented to unit, room, information board, rooming in, admission packet and security measures. Patient verbalizes understanding.
[2025-08-23] MEDS: LIDOCAINE 5% PATCH 1 PATCH TRANSDERM (15:55)
[2025-08-23] MEDS: KETOROLAC 15 MG/ML VIAL (*BKC) IV PUSH ×2 (15:57→21:42)
[2025-08-23] MEDS: SIMETHICONE 80 MG TAB.CHEW PO (16:12)
[2025-08-23] MEDS: DOCUSATE SODIUM 100 MG CAPSULE PO (16:23)
[2025-08-23] MEDS: ESCITALOPRAM OXALATE 5 MG TABLET BY MOUTH (16:24)
[2025-08-23] MEDS: LANOLIN (LANSINOH) 7.5 GM CREAM 1 APPLIC TOPICAL (16:25)
[2025-08-23] MEDS: DEXTROSE 5%/0.45% SOD CHL 1,000 ML 125 ML IV CONT (19:05)
[2025-08-24 03:09] VITALS: BP 121/71; PULSE 81; RESP 16; TEMP 36.6; O2SAT 99
[2025-08-24] MEDS: KETOROLAC 15 MG/ML VIAL (*BKC) IV PUSH (04:10)
[2025-08-24] MEDS: ACETAMINOPHEN 500 MG TABLET 1000 MG PO ×4 (04:10→23:40)
[2025-08-24 04:56] LABS: Hematocrit 37.4 % (37.0-47.0); Hemoglobin 12.8 g/dL (12.0-15.0); Immature Granulocyte Percent A 0.3 % (0-0.5); Lymphocytes Absolute Auto 1.33 K/mm3 (0.9-3.2); Mean Corpuscular HGB Conc 34.2 g/dl (32-36); Mean Corpuscular Hemoglobin 30.1 pg (26-34); Mean Corpuscular Volume 88.0 fl (80-100); Nucleated Red Blood Cells Absolute Auto 0.000 K/mm3 (0.0-0.012); Nucleated Red Blood Cells Perc 0.0 % (0.0-0.2); Platelet Count Result 198 k/mm3 (150-375); Red Blood Count 4.25 M/mm3 (4.2-5.4); White Blood Count 9.3 K/mm3 (4.5-10.0)
--- NOTE | 2025-08-24 07:32 | P.PNOB_ITS ---
OB - PN: Subj Subjective Date/time seen: 08/24/25 07:30 Narrative: POD#1 Vivian reports doing well today. Her bleeding is light. Her pain is controlled. She is tolerating regular diet, voiding, passing gas, and ambulating without issues. She denies any issues with her incision. She is breast feeding. OB - PN: Obj Data Labs 08/24/25 04:44 Labs: Laboratory Results - last 24 hr 08/23/25 10:07 Syphilis IgG/IgM Ab Non-reactive OB - PN A/P Assessment and Plan (1) S/P repeat low transverse : Code(s): Z98.891 - History of uterine scar from previous surgery Status: Acute Plan day: 1 Plan: routine care Comments: - PO pain meds - Regular diet - Ambulation and hydration encouraged - Continue putting baby to breast q2-3hr - plan for d/c home tomorrow Time Spent With Patient Time: Total time spent is greater than 50% in coordination of care (as documented) at patient's floor/unit and/or counseling patient: Review of Systems 2 Constitutional: Constitutional: Denies chills, Denies fever(s) and Denies headache(s) Eyes: Eyes: Denies change in vision ENT: Denies dizziness and Denies headache(s) Cardiovascular: Cardiovascular: Denies chest pain, Denies palpitations and Denies dyspnea Respiratory: Respiratory: Denies cough and Denies dyspnea Gastrointestinal: Gastrointestinal: Denies nausea and Denies vomiting Genitourinary: Comments: normal bleeding Neurologic: Denies dizziness and Denies headache(s) Endocrine: Endocrine: Denies palpitations Exam 2 Const: General: cooperative, healthy appearing, comfortable and no acute distress Orientation/consciousness: patient oriented x3 Resp: Effort & Inspection: normal respiratory effort Auscultation: clear to auscultation bilaterally Cardio: Rate: regular rate GI: Inspection: non-distended and incision (covered with clean dressing) GI Palp: Yes abdominal tenderness (appropriate) and Yes Soft to palpation A uscultation: normal bowel sounds : Other: fundus firm Skin: General skin exam: normal color Neuro: General: patient oriented x3 Extrem: General: normal to inspection Psych: Appearance: grossly normal Affect: normal affect Attitude: c ooperative
[2025-08-24 07:45] VITALS: BP 113/72; PULSE 69; RESP 16; TEMP 36.6; O2SAT 98
[2025-08-24] MEDS: SIMETHICONE 80 MG TAB.CHEW PO ×3 (08:07→16:52)
[2025-08-24] MEDS: DOCUSATE SODIUM 100 MG CAPSULE PO ×2 (08:07→16:51)
[2025-08-24] MEDS: FAMOTIDINE 20 MG TABLET PO (08:07)
[2025-08-24] MEDS: MULTIVIT/MIN/PREN/FOL AC/IRON TABLET 1 TAB PO (08:07)
[2025-08-24] MEDS: ESCITALOPRAM OXALATE 5 MG TABLET BY MOUTH (08:07)
[2025-08-24] MEDS: LORATADINE 10 MG TABLET PO (08:07)
--- NOTE | 2025-08-24 09:47 | PC.NURSE ---
Consulted with patient to assess needs related to . Discussed with mother her successes, concerns and any questions she has. Per mother, she breastfed her other two children successfully, she thought at times this infant's latch felt a little shallow. We reviewed working with the , supporting breast, protecting her nipples with an optimal deep latch, good positioning, and good hand washing. Encouraged understanding the benefits of skin to skin, responding to feeding cues, frequencies of feeding 8-12 times in 24 hours (approximately 2-3 hours), duration of feedings, milk production, intake/output feeding sheet and signs of adequate intake encouraging swallowing at the breast. Reviewed positioning and alignment, supporting breast, off-centered (asymmetrical latch) and leading with the chin with big, open, wide gape. latched optimally to the [left] breast in [cross cradle] position. Education given to the mother of how to visualize the suckling (with good rocking jaw motion) swallows (dropping of the lower jaw) and how to listen for drinking at the breast (the ka sound). The infant was [able] to maintain latch without discomfort to mother. Nipple care reviewed with optimal latch, good positioning and using clean hands when touching her breast. Resources used to facilitate learning were used from the [visual handouts/ tool/mom and baby guide]. Mother voiced understanding of the education shared, to call for assistance if the infant does not latch or if there is discomfort with . Reported to the Primary RN.
[2025-08-24] MEDS: IBUPROFEN 600 MG TABLET PO ×3 (11:01→23:40)
[2025-08-24 12:03] VITALS: BP 126/87; PULSE 87; RESP 16; TEMP 37.3; O2SAT 98
--- NOTE | 2025-08-24 16:40 | WPDANLDPN2 ---
Anes-Prog Note L&D Date/Time: 08/24/25 16:40 Comfortable throughout: section Neuraxial method: spinal Epidural/Spinal procedure site: clean & non-tender Neuro status: Neuro function grossly intact. Cardiovascular status: normal Respiratory status: normal Airway patency: baseline Mental status: baseline Post-Op hydration status: normal Vital Signs: Last Vital Signs Temp 99.2 F 08/24/25 12:03 Pulse 87 08/24/25 12:03 Resp 16 08/24/25 12:03 BP 126/87 08/24/25 12:03 Pulse Ox 98 08/24/25 12:03 O2 Del Method Room Air 08/24/25 07:00 Pain score (VAS): 0 I/O: Intake & Output 08/24/25 08/24/25 08/24/25 07:59 15:59 23:59 Intake Total 1489.6 0 Output Total 2700 Balance -1210.4 0 Post-procedural complaints: none Patient feedback: Patient satisfied with anesthetic care.
--- NOTE | 2025-08-24 16:41 | WPDANLDNPN2 ---
Anes-Prog Note L&D-Neuraxial Date/Time: 08/24/25 16:41 Neuraxial medications: intrathecal PF morphine Opiod-related complaints: pruritis severe, treatment refractory Patient feedback: Patient satisfied with post-operative pain management.
[2025-08-24 19:57] VITALS: BP 131/85; PULSE 70; RESP 18; TEMP 36.7; O2SAT 97
[2025-08-25] MEDS: IBUPROFEN 600 MG TABLET PO (05:40)
[2025-08-25] MEDS: ACETAMINOPHEN 500 MG TABLET 1000 MG PO (05:40)
--- NOTE | 2025-08-25 08:01 | P.DS_ITS ---
DS: Admitting Diagnosis Discharge Date 08/25/25 Admitting Diagnosis h/o section DS: Discharge Diagnosis Discharge Diagnosis (1) S/P repeat low transverse : Code(s): Z98.891 - History of uterine scar from previous surgery Status: Acute OB - DS: Summary OB Procedures : Ultrasound OB Procedures Intrapartum: low cervical, transverse OB Procedures: : None Peripartum Data Infant Delivery Method: Section Procedures: Procedures Operation Date: 08/23/25 12:00 Actual Procedure Side Surgeon p Section Not Applicable Allison Lyons MD complications: none [place] 1: Gender: Female Disposition of : home Status at Discharge Functional status at discharge: independent ambulation Overall status at discharge: patient is back to baseline Time Spent with Patient Time attestation: Total time spent providing and/or coordinating discharge services: Exam Const: General: cooperative, healthy appearing, comfortable and no acute distress Orientation/consciousness: patient oriented x3 Resp: Effort & Inspection: normal respiratory effort Auscultation: clear to auscultation bilaterally Cardio: Rate: regular rate GI: Inspection: non-distended and incision (covered with clean dressing) GI Palp: No abdominal tenderness and Yes Soft to palpation Auscultation: normal bowel sounds : Other: fundus firm Skin: General skin exam: normal color Neuro: General: patient oriented x3 Extrem: General: normal to inspection Psych: Appearance: grossly normal Affect: normal affect Attitude: cooperative DS: Data Data Completed and Pending Labs on day of discharge: Labs from last 24 hours 08/24/25 04:44 WBC 9.3 RBC 4.25 Hgb 12.8 Hct 37.4 MCV 88.0 MCH 30.1 MCHC 34.2 RDW 13.0 Plt Count 198 MPV 10.2 Immature Gran % (Auto) 0.3 Neut % (Auto) 79.1 H Lymph % (Auto) 14.4 L [place] % (Auto) 5.5 Eos % (Auto) 0.5 Baso % (Auto) 0.2 Lymph # (Auto) 1.33 [place] # (Auto) 0.5 Eos # (Auto) 0.1 Baso # (Auto) 0.0 Abs Immat Gran (auto) 0.03 Absolute Neuts (auto) 7.3 H Absolute Nucleated RBC 0.000 Nucleated RBC % 0.0 Discharge Plan Discharge Attending physician on discharge: Allison Lyons Discharging Clinician: Allison Lyons Anticipated Discharge Date/Time: 08/25/25 11:00 Patient Disposition: Home Activity: may shower and may drive after 2 weeks Diet: regular Discharge Instructions: Pelvic rest/no lifting over 15 pounds for 6weeks remove dressing on 08/29/25 Patient Instructions: Antibiotic Form Patient Language: [place] Stand Alone Forms: General Discharge Information Follow-up/Referrals: Allison Lyons MD [Physician, CHILD WELFARE ASSISTANT] - 4 Weeks Discharge Medications: New oxycodone 5 mg Tablet 5 mg PO Q4H PRN (Reason: Pain Rated 4-6) Qty: 18 0RF lidocaine [Lidoderm] 5 % Adhesive Patch,Medicated 1 patch transdermal DAILY PRN (Reason: Incision pain) Qty: 15 0RF docusate sodium 100 mg Capsule 100 mg PO BID Qty: 90 0RF ibuprofen 600 mg Tablet 600 mg PO Q6HR Qty: 40 0RF acetaminophen 500 mg Tablet 1,000 mg PO Q6HR Qty: 60 0RF Continued ferrous sulfate [Feosol] 325 mg (65 mg iron) tablet 325 mg PO DAILY famotidine [Pepcid] 20 mg tablet 20 mg PO DAILY DHA 200 mg capsule 200 mg PO DAILY Unisom (doxylamine) 25 mg tablet 25 mg PO QHS PRN (Reason: sleep) escitalopram oxalate 5 mg tablet See Rx Instructions .ROUTE .COMPLEX Qty: 90 0RF Dose Instruction: TAKE 1 TABLET BY MOUTH DAILY Rx Instructions: TAKE 1 TABLET BY MOUTH DAILY Discontinued Abrysvo (PF) 120 mcg/0.5 mL recon soln 0.5 ml IM ONCE Qty: 1 0RF Rx Instructions: as a single dose. JALYN 08/28/25 Date of admission: 08/23/25 09:49 Primary Care Provider: Bayron De La Rosa Admitting Provider: Allison Lyons Attending physician on admission: Allison Lyons Condition: Stable
[2025-08-25] MEDS: DOCUSATE SODIUM 100 MG CAPSULE PO (08:13)
[2025-08-25] MEDS: LORATADINE 10 MG TABLET PO (08:13)
[2025-08-25] MEDS: ESCITALOPRAM OXALATE 5 MG TABLET BY MOUTH (08:13)
[2025-08-25] MEDS: SIMETHICONE 80 MG TAB.CHEW PO (08:13)
[2025-08-25] MEDS: FAMOTIDINE 20 MG TABLET PO (08:13)
[2025-08-25] MEDS: MULTIVIT/MIN/PREN/FOL AC/IRON TABLET 1 TAB PO (08:13)
[2025-08-25 08:15] VITALS: BP 135/86; PULSE 79; RESP 18; TEMP 37.2; O2SAT 97
--- NOTE | 2025-08-25 09:40 | PC.NURSE ---
Consulted with mother concerning needs and she shared her ability to independently latch infant. She feels that the latch is shallow but they are working on getting a deeper latch. Baby has lost 10% of her weight and the physician ordered supplementation of 15ml (breast milk or formula) after each . Mom has a breast pump at home. Mother is feeding appropriately for growth of and understands stimulating to eat if needed. Reinforced understanding of milk production, transition of milk, signs of adequate intake, transition of stool, prevention/relief of engorgement, plugged ducts, mastitis, responsive watching for feeding cues, community resources (declines [facility] referral), and when to call a provider using the resource of the feeding sheet along with the mom and baby guide. Mother voiced understanding of the information shared, is confident to continue effectively her at home, when to call for assistance, denies any additional assistance or education at this time. Reported to the Primary RN.
[2025-08-26 08:14] VITALS: BP 127/75; PULSE 85; RESP 18; TEMP 36.5; O2SAT 100
== END 2025-08-25 11:37 | disposition home or self-care (01) | DRG 788 ==
LOC: ANHLDR 09:52 → ANHOB2 15:20
PROVIDERS: Admitting Provider Obstetrics & Gynecology; PCP Student in an Organized Health Care Education/Training Program; Visit Provider Obstetrics & Gynecology
PROC: 10D00Z1 Extraction of Products of Conception, Low, Open Approach (ICD-10-PCS; CPT 59514; principal; 2025-08-23 12:00)
DX: O34.211 Maternal care for low transverse scar from previous cesarean delivery (principal); Z37.0 Single live birth; Z3A.39 39 weeks gestation of pregnancy; O99.824 Streptococcus B carrier state complicating childbirth; O69.81X0 Labor and delivery complicated by cord around neck, without compression, not applicable or unspecified
CPT/HCPCS: 36415; 85025; 86593; A9270; J1885; J2274; J2405; J2590; J7120